=== PATIENT | female | born 1970 | race Caucasian/White ===

== ENCOUNTER 2025-07-16 21:42 | Emergency (ER) | payer BC, SELFPAY ==
[2025-07-16] VITALS (7 sets, daily range): BP systolic 103–132; BP diastolic 64–81; PULSE 84–98; RESP 13–18; O2SAT 96–99
--- NOTE | ~2025-07-16 | CT_ITS ---
CT HEAD NON-CONTRAST Clinical History: sycnope Comparison: None Technique: Unenhanced axial images skull base to vertex Coronal, sagittal reformats CT images acquired with automatic exposure control for dose reduction DLP: 605 mGy-cm Findings: Sulci, ventricles: Unremarkable. No intracerebral hemorrhage. No evidence acute territorial infarct. No mass effect, midline shift. Bony calvarium intact. Visualized paranasal sinuses: Clear. Mastoid air cells: Clear. IMPRESSION: 1. No acute intracranial findings. Reviewed, dictated and finalized at location R.
--- NOTE | ~2025-07-16 | XR_ITS ---
XR chest 1V portable INDICATION:syncope . REFERENCE: None FINDINGS: A single AP of the chest demonstrates normal heart size. The lungs are clear. There is no evidence of pneumothorax or pleural effusion. IMPRESSION: No acute pulmonary findings. Reviewed, dictated and finalized at location S.
--- NOTE | 2025-07-16 21:58 | ECG_ITS ---
Test Date: 2025-07-16 23:23:24 Measurements Intervals [place] Rate: 99 P: 43 OR: 145 QRS: 44 QRSD: 67 T: 43 QT: 349 QTc: 449 Interpretive Statements SINUS RHYTHM EARLY PRECORDIAL R/S TRANSITION BASELINE ARTIFACT- I, II, III, AVR, AVL, AVF, V1-V6 BORDERLINE ECG No previous ECG available for comparison Electronically Signed On 07-17-2025 07:24:54 CDT by Lazaro Marino D.O.
[2025-07-16] MEDS: SODIUM CHLORIDE 0.9% IV 2,000 ML 999 ML IV CONT (22:16)
[2025-07-16 22:17] LABS: Hematocrit 40.6 % (37.0-47.0); Hemoglobin 13.4 g/dL (12.0-15.0); Immature Granulocyte Percent A 0.3 % (0-0.5); Lymphocytes Absolute Auto 2.44 K/mm3 (0.9-3.2); Mean Corpuscular HGB Conc 33.0 g/dl (32-36); Mean Corpuscular Hemoglobin 31.2 pg (26-34); Mean Corpuscular Volume 94.4 fl (80-100); Nucleated Red Blood Cells Absolute Auto 0.000 K/mm3 (0.0-0.012); Nucleated Red Blood Cells Perc 0.0 % (0.0-0.2); Platelet Count Result 312 k/mm3 (150-375); Red Blood Count 4.30 M/mm3 (4.2-5.4); White Blood Count 8.8 K/mm3 (4.5-10.0)
[2025-07-16 22:28] LABS: INR 1.0; Prothrombin Time 13.4 Seconds (11.1-14.7)
[2025-07-16 22:29] LABS: Partial Thromboplastin Time 27.1 Seconds (22.3-36.8)
[2025-07-16 22:37] LABS: Alanine Aminotransferase 51 U/L (6-35); Albumin Level 4.4 g/dL (3.5-5.1); Alkaline Phosphatase 93 U/L (38-126); Anion Gap 14 mmol/L (4-12); Aspartate Amino Transferase 53 U/L (14-36); Bilirubin,Total 0.3 mg/dL (0.2-1.3); Blood Urea Nitrogen 13 mg/dL (7-17); Calcium 9.6 mg/dL (8.4-10.2); Carbon Dioxide 23 mmol/L (22-30); Chloride 101 mmol/L (98-107); Estimated CRCL calculation 59 ml/min; Estimated Glomerular Filt Rate 58; Glucose 127 mg/dL (65-110); Magnesium 2.1 mg/dL (1.6-2.3); Potassium 3.3 mmol/L (3.4-5.0); Sodium 138 mmol/L (137-145); Total Protein 7.3 g/dL (6.3-8.2)
--- OUTSIDE RECORDS SUMMARY | 2025-07-16 22:40 | XMS_ITS | Clinical Summary ---
Author Organization [facility] Address [address] [place] [address] Phone Care Team Providers Care Metal Products Viewer Name Role Phone Unavailable Primary Care Provider Unavailabl e Allergies No known active allergies Medications tamsulosin (FLOMAX) 0.4 MG Capsule Take by mouth daily. 0 6 Active Multiple Vitamin (MULTIVITAMINS PO) Take by mouth. Activ e topiramate (TOPAMAX) 100 MG Tablet TAKE 1 TABLET BY MOUTH 3 TIMES DAILY 270 Tab 2 8 Active Additional Information Patient not taking.Reported on 03/19/2019 Active Problems Problem Noted Date Diagnosed Date Kidney stones 02/09/2016 Overview (02/09/2016): 2009, 2013, 2015 Migraine 12/29/2015 Non Hodgkin's lymphoma 10/12/2015 Head ache Immunizations Immunization Administration Dates Next Due Influenza Vaccine, Quadrivalent, PF 07/04/2018 TDAP Vaccine 07/04/2018 Family History Medical History Relation Name Comments Cancer Father pancreatic Hypertension Father Asthma Mother Colon Cancer Paternal Uncle Relation Name Status Comments Father Mother Alive Paternal Uncle Social History Tobacco Use Types Packs/Day Years Used Date Smoking Tobacco: Never Smokeless Tobacco: Never Tobacco Cessation:Counseling Given: No Alcohol Use Standard Drinks/Week Comments Yes 0 (1 standard drink = 0.6 oz pur e alcohol) rarely, 1-2 drinks per year Sexually Active Control Partners Comments Yes Comments No Sex and Gender Information Value Date Recorded Sex Assigned at Not on file Legal Sex Female 9:14 PM CDT Gender Identity Not on file Sexual Orientation Not on file Last Filed Vital Signs Vital Sign Reading Time Taken Comments Blood Pressure 124/70 03/19/2019 2:23 PM CDT Pulse 91 03/19/2019 2:23 PM CDT Temperature 37.9 C (100.3 F) 03/19/2019 2:23 PM CDT Respiratory Rate 12 03/19/2019 2:23 PM CDT Oxygen Saturation 96% 03/19/2019 2:23 PM CDT Inhaled Oxygen Concentration - - Weight 78 kg (172 lb) 03/19/2019 2:23 PM CDT Height 167.6 cm (5' 6) 03/19/2019 2:23 PM CDT Body Mass Index 27.76 03/19/2019 2:23 PM CDT Plan of Treatment Health Maintenance Due Date Last Done Comments Hepatitis C Virus (HCV) Screening 1972 SARS-COV-2 Immunization (#1) 1977 Hepatitis B Immunization (1 of 3 - 19+ 3-dose series) 1991 Pneumococcal Immunization (5 0+ years) (1 of 2 - PCV) 1991 Zoster Immunization (1 of 2) 1991 Pap Smear 1993 Cervical Cancer Screening (CCS) 2002 HPV/Cotest 2002 Cologuard 2017 Immunochemical Fecal Occult Blood 2017 Colonoscopy 01/29/2023 01/29/2018, 12/02/2013 Colorectal Cancer Screening 01/29/2023 Influenza Immunization (#1) 2025 07/04/2018 Td Immunization Every 10 Yea rs (Adults With 1 Tdap) 07/04/2028 07/04/2018 Respiratory Syncytial Virus (RSV) Immunization (Adult) (1 - 1-dose 75+ series) 2047 Human Papillomavirus (HPV) Immunization Aged Out No longer eligible b ased on patient's age to complete this topic Meningococcal Immunization (ACWY) Aged Out No longer eligible b ased on patient's age to complete this topic Rotavirus Immunization Aged Out No lo nger eligible based on patient's age to complete this topic Procedures Procedure Name Priority Date/Time Associated Diagnosis Comments HM COLONOSCOPY Routine 12/02/2013 from Last 3 Months or Most Recently Relevant to Health Maintenance Results * HM COLONOSCOPY (12/02/2013) Arun Morgan Jr., MD PROCEDURE/MINOR [facility] GICAL ORDERABLES Final Result from Last 3 Months or Most Recently Relevant to Health Maintenance Insurance [facility]
--- OUTSIDE RECORDS SUMMARY | 2025-07-16 22:40 | XMS_ITS | Encounter Summary ---
Author Organization [facility] Address [address] [place] [address] Care Team Providers Care Geriatrics Physician Name Role Phone Michael Hernández MD Primary Care Provider + Encounter Details Date Type Department Care Team (Late st Contact Info) Description 05/29/[address] [facility] [place] [facility] [address] [place] [phone] Cortez Ospina MD NO ADDRESS ON FILE Social History Tobacco Use Types Packs/Day Years Used Date Smoking Tobacco: Never Assessed Comments Unknown Sex and Gender Information Value Date Recorded Sex Assigned at Not on file Legal Sex Female 4:18 AM SLAG DUMPER Gender Identity Not on file Sexual Orientation Not on file documented as of this encounter Plan of Treatment Not on file documented as of this encounter Visit Diagnoses Not on filedocumented in this encounter Care Teams Geriatrics Physician Relationship Specialty Start Date End Date Michael Hernández MD [address] [place] [id number] PCP - General Family Practice 01/24/22 documented as of this encounter
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
--- OUTSIDE RECORDS SUMMARY | 2025-07-16 22:40 | XMS_ITS | Clinical Summary ---
Author Organization [facility] Address [address] [place] [address] Care Team Providers Care Oven Technician Name Role Phone Eddie Flor MD, Arun [place] Primary Care Provi na Unavailable Source Comments [facility] inContact,non-owned Affiliates and Associated Physician Practices is amultiple site organization consisting of ambulatory clinics and hospital sitesin [place], [place], [place] and [place]. This disclosure is being madepursuant to the Care Everywhere program and may not contain all information available regarding this patient. Last updated 18.[facility] inContact Allergies No known active allergies Medications * Be aware that medications may not be up to date on this document. Alwaysverify current medications with the patient. baclofen (Lioresal) 20 MG tablet 08/29/2022 Active Eletriptan Hydrobromide 20 MG 07/25/2022 Active topiramate (Topamax) 100 MG tablet 08/27/2022 Active Vitamins-Lipotrop ics (multiple vitamin) capsule Act kiersten cyclobenzaprine (Flexeril) 10 MG tablet Take 1 (one) tablet by mouth 3 times daily as needed for Muscle Spasms 30 tablet 09/05/2022 Active naproxen (Naprosyn) 500 MG tablet Take 1 (one) tablet by mouth 2 times daily 60 tablet 09/05/2022 Active Social History Tobacco Use Types Packs/Day Years Used Date Smoking Tobacco: Never Assessed Comments No Sex and Gender Information Value Date Recorded Sex Assigned at Not on file Legal Sex Female 3:28 PM CDT Gender Identity Not on file Sexual Orientation Not on file Last Filed Vital Signs Vital Sign Reading Time Taken Comments Blood Pressure 128/86 09/05/2022 2:06 PM CHEMICAL PROCESS EQUIPMENT OPERATOR Pulse 90 09/05/2022 2:06 PM CHEMICAL PROCESS EQUIPMENT OPERATOR Temperature 36.7 C (98.1 F) 09/05/2022 2:06 PM CHEMICAL PROCESS EQUIPMENT OPERATOR Respiratory Rate 18 09/05/2022 2:06 PM CHEMICAL PROCESS EQUIPMENT OPERATOR Oxygen Saturation 98% 09/05/2022 2:06 PM CHEMICAL PROCESS EQUIPMENT OPERATOR Inhaled Oxygen Concentration - - Weight 70.3 kg (155 lb) 09/05/2022 2:06 PM CHEMICAL PROCESS EQUIPMENT OPERATOR Height 165.1 cm (5' 5) 09/05/2022 2:06 PM CHEMICAL PROCESS EQUIPMENT OPERATOR Body Mass Index 25.79 09/05/2022 2:06 PM CHEMICAL PROCESS EQUIPMENT OPERATOR Plan of Treatment Health Maintenance Due Date Last Done Comments COLOGUARD (AGES 45-75) - COL ON CA SCREENING 1972 COLON MONITORING 1972 COLONOSCOPY - COLON CA SCREENING 1972 CT COLONOGRAPHY - COLON CA SCREENING 1972 Colorectal Cancer Screening 1972 FIT - COLON CA SCREENING 1972 FLEX SIG - COLON CA SCREENING 1972 LIPID TESTING 1972 MAMMOGRAM 1972 HIV SCREENING 1987 HEPATITIS C SCREENING 07/01/1990 DTAP/TDAP/TD VACCINES (1 - Tdap) 1991 HEPATITIS B VACCINE (1 of 3 - 19+ 3-dose series) 1991 PAP SMEAR 1993 PNEUMOCOCCAL VACCINE 50+ (1 of 1 - PCV) 2022 ZOSTER VACCINE (1 of 2) 2022 DEPRESSION SCREENING 09/30/2024 COVID-19 VACCINE (1 - 2023-2 5 season) 2025 INFLUENZA VACCINE (#1) 2025 9, 07/04/2018 HIB VACCINE Aged Out No longer eligi ble based on patient's age to complete this topic HPV VACCINE Aged Out No longer eligi ble based on patient's age to complete this topic MENINGOCOCCAL (Group B) VACCINE SHARED DECISION-MAKING Aged Out No longer eligible based on patient's age to complete this topic MENINGOCOCCAL GROUPS A/C/Y/W VACCINE Aged Out No longer eligible b ased on patient's age to complete this topic Insurance RENEE ROBBY Care Teams Oven Technician Relationship Specialty Start Date End Date Arun Morgan Jr., MD PCP - General 07/22/18
--- OUTSIDE RECORDS SUMMARY | 2025-07-16 22:40 | XMS_ITS | Encounter Summary ---
Author Organization [email or web address] Address [address] [place] [address] Care Team Providers Care Continuous Improvement Director Name Role Phone Michael Hernández MD Primary Care Provider + Encounter Details Date Type Department Care Team (Late st Contact Info) Description 05/19/2000 Emergency [facility] Shadia Cruz MD NO ADDRESS ON FILE Er, Authorized P NO ADDRESS ON FILE Migraine, unspecified, without mention of intractable migraine without mention of status migrainosus (Primary Dx) Social History Tobacco Use Types Packs/Day Years Used Date Smoking Tobacco: Never Assessed Comments Unknown Sex and Gender Information Value Date Recorded Sex Assigned at Not on file Legal Sex Female 4:18 AM GAMER Gender Identity Not on file Sexual Orientation Not on file documented as of this encounter Plan of Treatment Not on file documented as of this encounter Visit Diagnoses Diagnosis Migraine, unspecified, without mention of intractable migraine without mention of status migrainosus- Primary documented in this encounter Care Teams Continuous Improvement Director Relationship Specialty Start Date End Date Michael Hernández MD [address] [place] [phone] PCP - General Family Practice 01/24/22 documented as of this encounter
--- OUTSIDE RECORDS SUMMARY | 2025-07-16 22:40 | XMS_ITS | Clinical Summary ---
Author Organization [facility] Address [address] [place] [address] Phone Care Team Providers Care Resource Manager Name Role Phone Michael Hernández MD Primary Care Provider + Allergies No known active allergies Medications topiramate (TOPAMAX) 100 mg tablet Take 100 mg by mouth daily. Active cyclobenzaprine (FLEXERIL) 10 mg tablet Take 1 Tablet (10 mg) by mouth 3 times daily as needed for Spasm. 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 Gender Identity Not on file Sexual Orientation Not on file Last Filed Vital Signs Vital Sign Reading Time Taken Comments Blood Pressure 112/82 01/24/2022 10:00 AM CDT Pulse 85 01/24/2022 10:00 AM CDT Temperature 36.6 C (97.8 F) 01/24/2022 7:33 AM CDT Respiratory Rate 16 01/24/2022 10:00 AM CDT Oxygen Saturation 100% 01/24/2022 10:00 AM CDT Inhaled Oxygen Concentration - - Weight 72.6 kg (160 lb) 01/24/2022 7:33 AM CDT Height 165.1 cm (5' 5) 01/24/2022 7:33 AM CDT Body Mass Index 26.63 01/24/2022 7:33 AM CDT Plan of Treatment Health Maintenance Due Date Last Done Comments HEPATITIS B VACCINES (1 of 3 - 19+ 3-dose series) 1991 HPV/Cotest (21-29) 1993 CERVICAL CANCER SCREENING 2002 HPV/Cotest (30-65) 2002 PAP SMEAR 2002 BREAST CANCER SCREENING 2012 COLORECTAL SCREENING 2017 Colorectal Cancer Screening 2017 FIT-DNA Q 3 years 2017 FIT/FOBT Q 1 year 2017 Flex Sig/CT Colonography Q 5 years 2017 ZOSTER VACCINE (1 of 2) 2022 INFLUENZA VACCINE (#1) 2025 07/04/2018, 2010 DTAP/TDAP/TD VACCINES (2 - Td or Tdap) 07/04/2028 Insurance [facility] POS on [facility] BLUE ACCESS CHOICE Care Teams Resource Manager Relationship Specialty Start Date End Date Michael Hernández MD [address] [place] [phone] PCP - General Family Practice 01/24/22
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
[2025-07-16 22:48] LABS: Troponin I < 0.012 ng/mL (0.000-0.034)
[2025-07-16 23:06] LABS: Thyroid Stimulating Hormone Reflex 2.480 uIU/mL (0.465-4.68)
--- NOTE | 2025-07-16 23:27 | ED.SYNCOPE ---
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 Patient states she was standing around had some minimal wine drinking throughout the day but felt very warm and flushed and felt diaphoretic right before she lost consciousness. She has had this happened to her previously under similar circumstances. Had a workup at that time was told nothing was found and she was probably dehydrated or had a vasovagal event. Patient denies any symptoms now and states she feels much better. Denies any chest pain, shortness a breath, nausea, vomiting, vision change, abdominal pain, fever, chills. Did have a migraine headache earlier that also resolved now. States it feels very similar to last time she had a vasovagal syncopal events. Currently asymptomatic. Denies any new medication changes or recent illnesses otherwise. Related Data Allergies Allergy/AdvReac Type Severity Reaction Status Date / Time No Known Allergies Allergy Unverified 02/10/16 07:34 Review of Systems Review of Systems: As reviewed above in HPI Exam Narrative: GENERAL: [Well-appearing, well-nourished, and in no acute distress.] HEAD: [Normocephalic, atraumatic.] EYES: [PERRLA and EOMI.] ENT: Nares clear, no rhinorrhea or epistaxis. Mucous membranes moist. NECK: Supple. CHEST: [Clear to auscultation. No respiratory distress.] HEART: [Regular rate and rhythm]. No murmur heard. [Normal peripheral pulses.] ABDOMEN: [Soft, nondistended], [nontender], [No rigidity or guarding] EXTREMITIES: Normal range of motion. [No edema.] SKIN: Warm, dry, no rash. NEURO: [No focal deficits]. 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 Patient states she was standing around had some minimal wine drinking throughout the day but felt very warm and flushed and felt diaphoretic right before she lost consciousness. She has had this happened to her previously under similar circumstances. Had a workup at that time was told nothing was found and she was probably dehydrated or had a vasovagal event. Patient denies any symptoms now and states she feels much better. Denies any chest pain, shortness a breath, nausea, vomiting, vision change, abdominal pain, fever, chills. Did have a migraine headache earlier that also resolved now. States it feels very similar to last time she had a vasovagal syncopal events. Currently asymptomatic. Denies any new medication changes or recent illnesses otherwise. Patient's signs and symptoms sound consistent with vasovagal versus orthostatic syncopal event given that patient did have some soft blood pressures per EMS the now improved without any intervention. She did have a prodrome and felt symptoms prior to the onset of her syncope rather than it being spontaneous. Low suspicion cardiac related syncope or thromboembolic disease or event. Low suspicion intracranial process such as hemorrhage. Broad workup obtained including EKG, chest x-ray, CBC, troponin, dimer, CT of the head. Laboratory studies obtained she was given fluid rehydration and placed on monitor. Patient's laboratory studies show no leukocytosis or anemia. Normal platelet count. Negative D-dimer, normal PT, PTT. Slightly low potassium of 3.3 which was repleted orally. Normal electrolytes otherwise. Mildly low GFR likely dehydration causing her symptomatology which improved with fluids. Lactate mildly elevated and decreased with fluids down to 1.7. Troponin negative. TSH normal. LFTs mildly elevated. Chest x-ray shows no acute findings. CT of the head shows no acute findings. EKG unremarkable. Patient did have some mildly orthostatic vital signs likely volume depletion and dehydration consistent with her other laboratory findings. Given fluid replenishment and safe for discharge after observation stay in the ED without any symptom recurrence. Patient and family comfortable to plan for discharge home at this time. Medical Records Attestation: I reviewed the patient's medical records. Lab Data Attestation: I reviewed the patient's lab results. 07/16/25 22:08 07/16/25 22:08 Labs: Lab Results 07/16/25 07/17/25 07/17/25 Range/Units 22:08 00:49 00:49 WBC 8.8 (4.5-10.0) K/mm3 RBC 4.30 (4.2-5.4) M/mm3 Hgb 13.4 (12.0-15.0) g/dL Hct 40.6 (37.0-47.0) % MCV 94.4 (80-100) fl MCH 31.2 (26-34) pg MCHC 33.0 (32-36) g/dl RDW 11.9 (11.5-14.5) % Plt Count 312 (150-375) k/mm3 MPV 8.8 (7.4-10.4) fl Immature Gran % (Auto) 0.3 (0-0.5) % Neut % (Auto) 64.0 (45.5-73.1) % Lymph % (Auto) 27.9 (18.3-44.2) % [place] % (Auto) 5.8 (2.6-8.5) % Eos % (Auto) 1.3 (0-4.4) % Baso % (Auto) 0.7 (0.2-1.2) % Lymph # (Auto) 2.44 (0.9-3.2) K/mm3 [place] # (Auto) 0.5 (0.1-0.6) K/mm3 Eos # (Auto) 0.1 (0-0.3) K/mm3 Baso # (Auto) 0.1 (0.0-0.1) K/mm3 Abs Immat Gran (auto) 0.03 (0.00-0.031) K/mm3 Absolute Neuts (auto) 5.6 (1.3-6.7) K/mm3 Absolute Nucleated RBC 0.000 (0.0-0.012) K/mm3 Nucleated RBC % 0.0 (0.0-0.2) % PT 13.4 (11.1-14.7) Seconds INR 1.0 APTT 27.1 (22.3-36.8) Seconds D-Dimer < 0.27 (<0.48) ug/mL Sodium 138 (137-145) mmol/L Potassium 3.3 L (3.4-5.0) mmol/L Chloride 101 (98-107) mmol/L Carbon Dioxide 23 (22-30) mmol/L Anion Gap 14 H (4-12) mmol/L BUN 13 (7-17) mg/dL Creatinine 1.00 (0.7-1.0) mg/dL Estim Creat Clear Calc 59 ml/min Estimated GFR 58 L (59 - ) Glucose 127 H (65-110) mg/dL Lactic Acid 3.0 H 1.7 1.7 (0.7-2.0) mmol/L Calcium 9.6 (8.4-10.2) mg/dL Magnesium 2.1 (1.6-2.3) mg/dL Total Bilirubin 0.3 (0.2-1.3) mg/dL AST 53 H (14-36) U/L ALT 51 H (6-35) U/L Alkaline Phosphatase 93 (38-126) U/L Troponin I < 0.012 (0.000-0.034) ng/mL Total Protein 7.3 (6.3-8.2) g/dL Albumin 4.4 (3.5-5.1) g/dL TSH (Reflex) 2.480 (0.465-4.68) uIU/mL Imaging Data Attestation: I personally reviewed and interpreted this imaging study as follows: My impression: Impressions Chest X-Ray 07/16/25 22:49 IMPRESSION: No acute pulmonary findings. Discharge Plan Discharge Clinical Impression: Syncope due to orthostatic hypotension, Dehydration, Hypokalemia Patient Disposition: Home Condition: Stable Instructions: Antibiotic Form, Dehydration (ED), Syncope (ED) Additional Instructions: Your laboratory study showed dehydration and mildly low potassium. Symptoms consistent with dehydration and orthostatic syncope versus vasovagal event. We have treated with fluid replenishment and electrolyte replenishment. No urgent or emergent concerns were identified today. No signs of any cardiac disease, blood clot or any intracranial pathology. Follow-up with regular doctor on outpatient basis. Return with any recurrent or emergent concerns. Patient Language: [place] Follow-up/Referrals: Michael Ruano [Other] Time of Disposition: 01:39
[2025-07-16] MEDS: POTASSIUM CHLORIDE 20 MEQ PACKET (FOR LIQUID) 40 MEQ PO (23:48)
[2025-07-17] MEDS: KETOROLAC 15 MG/ML VIAL (*BKC) IV PUSH (01:05)
[2025-07-17 01:32] VITALS: PULSE 84; RESP 14; O2SAT 99
[2025-07-17 01:45] VITALS: BP 116/68; PULSE 92; RESP 14; O2SAT 98
== END 2025-07-17 02:05 | disposition home or self-care (01) ==
PROVIDERS: Emergency Provider Student in an Organized Health Care Education/Training Program
DX: I95.1 Orthostatic hypotension (principal); E86.0 Dehydration; E87.6 Hypokalemia
CPT/HCPCS: 36415; 70450; 71045; 80053; 83605; 83735; 84443; 84484; 85025; 85380; 85610; 85730; 93005; 96361; 96374; 99284; A9270; J1885; J7030